=== PATIENT | male | born 1975 | race Hispanic/Latino ===

== ENCOUNTER 2019-01-20 12:13 | Emergency (ER) | payer OTHER ==
--- NOTE | 2019-01-20 13:03 | Emergency Department Report ---
ED Altered Mental Status HPI - General Chief Complaint: Altered Mental Status Stated Complaint: UNRESPONSIVE Time Seen by Provider: 01/20/19 12:44 Source: patient, EMS Mode of arrival: Stretcher Limitations: Altered Mental Status - History of Present Illness Initial Comments: 43-year-old male with a past medical history of anxiety presents to the hospital with altered mental status. EMS was found "passed out" at the wheel of his running car at a gas station. Patient is drowsy but arousable to voice and tactile stimulation able to answer questions with slow slurred speech. He states that he took Xanax earlier today which he is prescribed when necessary anxiety. He denies any overdose or ingestions of any other substances. He states he was headed to work. He states he is going through a hard time since his brother recently . He denies suicidal ideation. - Related Data Home Medications Medication Instructions Recorded Confirmed Last Taken Metoprolol [Lopressor] 25 mg PO BID 01/20/19 01/20/19 Unknown Allergies Allergy/AdvReac Type Severity Reaction Status Date / Time No Known Allergies Allergy Unverified 01/20/19 12:33 ED Review of Systems ROS: Stated complaint: UNRESPONSIVE Other details as noted in HPI Comment: All other systems reviewed and negative ED Past Medical Hx - Past Medical History Previous Medical History?: Yes Hx Psychiatric Treatment: Yes (anxiety) - Surgical History Past Surgical History?: Yes Additional Surgical History: back surgeries - Social History Smoking Status: Never Smoker Substance Use Type: Prescribed - Medications Home Medications: Home Medications Medication Instructions Recorded Confirmed Last Taken Type Metoprolol [Lopressor] 25 mg PO BID 01/20/19 01/20/19 Unknown History ED Physical Exam - General Limitations: Altered Mental Status - Other Other exam information: General: No limitations, patient is alert in no acute distress Head exam: Atraumatic, normocephalic Eyes exam: Normal appearance, pupils equal reactive to light, extraocular movements intact ENT: Moist mucous membrane, normal oropharynx Neck exam: Normal inspection, full range of motion, no meningismus nontender Respiratory exam: Clear to auscultation bilateral, no wheezes, rales, crackles Cardiovascular: Normal rate and rhythm, normal heart sounds Abdomen: Soft, nondistended, and nontender, with normal bowel sounds, no rebound, or guarding Extremity: Full range of motion normal inspection no deformity Back: Normal Inspection, full range of motion, no tenderness Neurologic: Lethargic but arousable, oriented 3, cranial nerves intact, slurred slow speech, no motor or sensory deficit Psychiatric: normal affect, normal mood Skin: Warm, dry, intact ED Course Vital Signs 01/20/19 01/20/19 01/20/19 12:29 16:00 18:00 Temperature 98.2 F Pulse Rate 105 H 141 H 139 H Respiratory 14 18 20 Rate Blood Pressure 152/61 Blood Pressure 141/80 159/91 [Left] O2 Sat by Pulse 96 97 95 Oximetry 01/20/19 19:13 Temperature Pulse Rate 106 H Respiratory 18 Rate Blood Pressure Blood Pressure 146/76 [Left] O2 Sat by Pulse 95 Oximetry - Reevaluation(s) Reevaluation #1: 01/20/19 16:31 Patient was pacing in all fall trying to get someone to pick him up. I i nstructed nurse to repeat vital signs sensitive heart rate initially 105. Heart rate now 140. Patient is not medically clear for discharge since he is still intoxicated with abnormal vital signs. IV fluids ordered 01/20/19 18:01 Patient took out his IV for the second time after receiving 1 L of normal saline. Nurses were able to elicit history the patient takes metoprolol 25 mg twice a day. Patient states he did not take his medication this morning. This could be the cause of his tachycardia. He told patient he is not medically cleared and we'll observe him to make sure his heart rate improves after metoprolol. Ativan was also ordered because patient was anxious and crying with associated elevated heart rate. Patient does take Xanax for anxiety. 01/20/19 19:15 After Metoprolol 25 mg, 1 L IV fluids, and IM Ativan, heart rate is decreasing and less than 100 when he sitting at rest. Patient's speech is also clear and no longer slurred and he has a steady gait. No signs of tremor or withdrawal symptoms at discharge. 2012 rescinded pending a ride home from his family members who can assume his care. - Lab Data Result diagrams: 01/20/19 12:58 01/20/19 12:58 Lab Results 01/20/19 01/20/19 01/20/19 Range/Units 12:48 12:58 12:58 WBC 4.1 L (4.5-11.0) K/mm3 RBC 4.93 (3.65-5.03) M/mm3 Hgb 16.2 H (11.8-15.2) gm/dl Hct 47.6 H (35.5-45.6) % MCV 97 H (84-94) fl MCH 33 H (28-32) pg MCHC 34 (32-34) % RDW 18.4 H (13.2-15.2) % Plt Count 135 L (140-440) K/mm3 VBG pH (7.320-7.420) Sodium 140 (137-145) mmol/L Potassium 3.5 L (3.6-5.0) mmol/L Chloride 92.4 L (98-107) mmol/L Carbon Dioxide 31 H (22-30) mmol/L Anion Gap 20 mmol/L BUN 3 L (9-20) mg/dL Creatinine 1.1 (0.8-1.5) mg/dL Estimated GFR > 60 ml/min BUN/Creatinine Ratio 3 % Glucose 150 H (75-100) mg/dL POC Glucose 147 H (70-105) Calcium 8.9 (8.4-10.2) mg/dL Total Bilirubin 0.60 (0.1-1.2) mg/dL AST 74 H (5-40) units/L ALT 45 (7-56) units/L Alkaline Phosphatase 42 (35-129) units/L Ammonia (25-60) umol/L Troponin T < 0.010 (0.00-0.029) ng/mL Total Protein 6.5 (6.3-8.2) g/dL Albumin 4.2 (3.9-5) g/dL Albumin/Globulin Ratio 1.8 % Salicylates (2.8-20.0) mg/dL Acetaminophen (10.0-30.0) ug/mL Plasma/Serum Alcohol (0-0.07) % 01/20/19 01/20/19 01/20/19 Range/Units 12:58 12:58 12:58 WBC (4.5-11.0) K/mm3 RBC (3.65-5.03) M/mm3 Hgb (11.8-15.2) gm/dl Hct (35.5-45.6) % MCV (84-94) fl MCH (28-32) pg MCHC (32-34) % RDW (13.2-15.2) % Plt Count (140-440) K/mm3 VBG pH (7.320-7.420) Sodium (137-145) mmol/L Potassium (3.6-5.0) mmol/L Chloride (98-107) mmol/L Carbon Dioxide (22-30) mmol/L Anion Gap mmol/L BUN (9-20) mg/dL Creatinine (0.8-1.5) mg/dL Estimated GFR ml/min BUN/Creatinine Ratio % Glucose (75-100) mg/dL POC Glucose (70-105) Calcium (8.4-10.2) mg/dL Total Bilirubin (0.1-1.2) mg/dL AST (5-40) units/L ALT (7-56) units/L Alkaline Phosphatase (35-129) units/L Ammonia 45.0 (25-60) umol/L Troponin T (0.00-0.029) ng/mL Total Protein (6.3-8.2) g/dL Albumin (3.9-5) g/dL Albumin/Globulin Ratio % Salicylates < 0.3 L (2.8-20.0) mg/dL Acetaminophen 14.8 (10.0-30.0) ug/mL Plasma/Serum Alcohol (0-0.07) % 01/20/19 01/20/19 Range/Units 12:58 13:15 WBC (4.5-11.0) K/mm3 RBC (3.65-5.03) M/mm3 Hgb (11.8-15.2) gm/dl Hct (35.5-45.6) % MCV (84-94) fl MCH (28-32) pg MCHC (32-34) % RDW (13.2-15.2) % Plt Count (140-440) K/mm3 VBG pH 7.380 (7.320-7.420) Sodium (137-145) mmol/L Potassium (3.6-5.0) mmol/L Chloride (98-107) mmol/L Carbon Dioxide (22-30) mmol/L Anion Gap mmol/L BUN (9-20) mg/dL Creatinine (0.8-1.5) mg/dL Estimated GFR ml/min BUN/Creatinine Ratio % Glucose (75-100) mg/dL POC Glucose (70-105) Calcium (8.4-10.2) mg/dL Total Bilirubin (0.1-1.2) mg/dL AST (5-40) units/L ALT (7-56) units/L Alkaline Phosphatase (35-129) units/L Ammonia (25-60) umol/L Troponin T (0.00-0.029) ng/mL Total Protein (6.3-8.2) g/dL Albumin (3.9-5) g/dL Albumin/Globulin Ratio % Salicylates (2.8-20.0) mg/dL Acetaminophen (10.0-30.0) ug/mL Plasma/Serum Alcohol 0.33 H (0-0.07) % - EKG Data -: EKG Interpreted by Me EKG shows normal: sinus rhythm, axis (qrs 123), QRS complexes (qrsd 110), ST-T waves (no stemi/t wave) Rate: tachycardia (124) - Radiology Data Radiology results: report reviewed CT HEAD WITHOUT CONTRAST HISTORY: Recent altered mental status COMPARISON: None TECHNIQUE: CT images of the head were obtained without contrast. CONTRAST: None. FINDINGS: Cerebral and Cerebellar Hemispheres: No evidence of mass or mass effect. No midline shift. No acute hemorrhage. No acute cortical infarction. No extra-axial fluid collection. Ventricles: Normal in size and configuration for age. Osseous Structures: No significant abnormality. Visualized Paranasal Sinuses: No significant abnormality. Additional Findings: None IMPRESSION: 1. No acute intracranial abnormality. - Medical Decision Making During ED stay nurses able to get ahold of a family member who states that patient has a history of alcohol abuse. Patient became alert in the ER and wanting to leave. We informed him he will have to have someone come pick him up. He is still intoxicated with slurred speech but has a stable gait. He will be discharged once a family member can come to assume care of him since he has a significantly elevated blood alcohol level. 2013 was signed until his ride came to ensue safe d/c - Differential Diagnosis drug overdose, encephalopathy Critical Care Time: No Critical care attestation.: If time is entered above; I have spent that time in minutes in the direct care of this critically ill patient, excluding procedure time. ED Disposition Clinical Impression: Acute alcohol intoxication, Anxiety, History of alcohol abuse, Current use of beta nader Disposition: DC-01 TO HOME OR SELFCARE Is pt being admited?: No Does the pt Need Aspirin: No Condition: Stable Instructions: Abuse of Alcohol (ED), Alcohol Intoxication (ED), Anxiety (ED) Additional Instructions: Follow up with your doctor or the clinic/doctor provided. Return if symptoms worsen as indicated by your discharge instructions Referrals: [facility] Time of Disposition: 19:19
[2019-01-20 13:13] LABS: Hematocrit 47.6 % (35.5-45.6); Hemoglobin 16.2 gm/dl (11.8-15.2); Mean Corpuscular HGB Conc 34 % (32-34); Mean Corpuscular Volume 97 fl (84-94); Platelet Count 135 K/mm3 (140-440); Red Blood Count 4.93 M/mm3 (3.65-5.03); Red Cell Distribution Width 18.4 % (13.2-15.2)
[2019-01-20 13:38] LABS: Alanine Aminotransferase 45 units/L (7-56); Albumin 4.2 g/dL (3.9-5); BUN/Creatinine Ratio 3; Blood Urea Nitrogen 3 mg/dL (9-20); Calcium 8.9 mg/dL (8.4-10.2); Hemolysis Index 11
--- NOTE | 2019-01-20 14:12 | Cat Scan Report ---
CT HEAD WITHOUT CONTRAST HISTORY: Recent altered mental status COMPARISON: None TECHNIQUE: CT images of the head were obtained without contrast. CONTRAST: None. FINDINGS: Cerebral and Cerebellar Hemispheres: No evidence of mass or mass effect. No midline shift. No acute hemorrhage. No acute cortical infarction. No extra-axial fluid collection. Ventricles: Normal in size and configuration for age. Osseous Structures: No significant abnormality. Visualized Paranasal Sinuses: No significant abnormality. Additional Findings: None IMPRESSION: 1. No acute intracranial abnormality. Signer Name: Frederick Flores Jr, MD Signed: 01/20/2019 2:08 PM Workstation Name: [id number]
[2019-01-20] MEDS ORDERED: NACL 0.9% 1000 ML 1,000 ML IV ONE (16:09)
[2019-01-20] MEDS ORDERED: LOPRESSOR PO ONE (17:26)
[2019-01-20] MEDS ORDERED: ATIVAN IM ONE (18:17)
[2019-01-20 19:14] VITALS: BP 146/76
[2019-01-20 20:08] LABS: Total Cells Counted 100
[2019-01-20 20:09] LABS: Anisocytosis 1+; Eosinophils % (Manual) 0 % (0.0-4.3); Platelet Estimate Consistent w Auto
== END 2019-01-20 20:28 | disposition home or self-care (01) ==
LOC: ED 12:13
DX: F10.129 Alcohol abuse with intoxication, unspecified (principal); F41.9 Anxiety disorder, unspecified; Z79.899 Other long term (current) drug therapy
CPT/HCPCS: 36415; 70450; 80053; 82140; 82805; 82962; 84484; 85007; 85025; 93005; 93010; 96360; 96361; 96372; 99285; G0480; J2060; J7030; 80320